=== PATIENT | male | born 1935 | race Caucasian/White ===

== ENCOUNTER → 2021-11-29 | Emergency (ER) | payer OTHER ==
[~2021-11-29] MED LIST: DIPH-TET-PERTUS Vaccine 0.5 ML VIAL (ADACEL) I.M. ONE
[2021-11-29 21:57] VITALS: BP_SYST 191
--- NOTE | 2021-11-30 | NUR ---
Received patient to ER via EMS ambulance w/ c/o generalized weakness. Patient resting quietly. No acute distress noted. Introduced self to patient, abrasion noted to left elbow. positioned for comfort. bed to low position sr up. continue to monitor. Vital signs within normal range.
[2021-11-30 00:27] LABS: BASOPHILS % (AUTO) 0.6 % (0.0-2.0); EOSINOPHILS # (AUTO) 0.1 K/uL (0.0-0.4); EOSINOPHILS % (AUTO) 2.3 % (0.0-4.0); HEMATOCRIT 31.5 % (36-54); HEMOGLOBIN 10.5 g/dL (14.0-18.0); LYMPHOCYTES # (AUTO) 0.6 K/uL (1.0-5.5); LYMPHOCYTES % (AUTO) 13.9 % (20.5-51.5); MEAN CORPUSCULAR HEMOGLOBIN 30 pg (27-31); MEAN CORPUSCULAR HGB CONC 33 % (32-36); MEAN CORPUSCULAR VOLUME 91 fL (79.0-98.0); MONOCYTES # (AUTO) 0.5 K/uL (0.0-1.0); MONOCYTES % (AUTO) 12.2 % (1.7-9.3); PLATELET COUNT (AUTO) 189 K/uL (130-430); RED BLOOD CELL COUNT(AUTO) 3.47 MIL/uL (4.2-6.2); RED CELL DISTRIBUTION WIDTH 14.7 % (9.0-15.0); WHITE BLOOD COUNT (AUTO) 4.2 K/uL (4.8-10.8)
[2021-11-30 00:53] LABS: ANION GAP -4 (5-15); CALCIUM 8.8 mg/dL (8.4-11.0); CHLORIDE 108 mmol/L (98-107); CREATININE 0.99 mg/dL (0.55-1.30); GLUCOSE 98 mg/dL (70-99); POTASSIUM 3.9 mmol/L (3.5-5.1); SODIUM SERUM 138 mmol/L (136-145); UREA NITROGEN, BLOOD 31 mg/dL (8-21)
[2021-11-30 01:07] LABS: ALANINE AMINOTRANSFERASE 28 U/L (12-78); ALBUMIN 3.1 g/dL (3.4-4.8); ASPARTATE AMINOTRANSFERASE 26 U/L (10-37); TOTAL BILIRUBIN 0.5 mg/dL (0.0-1.0)
--- NOTE | 2021-11-30 01:19 | NUR ---
Patient not medicated w/ tetanus 2nd to out of stock. [employer] called and confirmed that tetanus is out of stock.
--- NOTE | 2021-11-30 01:30 | NUR ---
steri strips to left elbow skin tear covered w/ gauze wrapped in kerlix. continue to monitor.
[2021-11-30 02:18] VITALS: BP_SYST 154
== END | disposition home or self-care (01) ==
LOC: SED 21:33
DX: S51.012A Laceration without foreign body of left elbow, initial encounter (principal); I10 Essential (primary) hypertension; F03.90 Unspecified dementia, unspecified severity, without behavioral disturbance, psychotic disturbance, mood disturbance, and anxiety; I48.20 Chronic atrial fibrillation, unspecified; Z79.01 Long term (current) use of anticoagulants; Z88.0 Allergy status to penicillin; Z88.8 Allergy status to other drugs, medicaments and biological substances; W19.XXXA Unspecified fall, initial encounter; Y93.9 Activity, unspecified; Y92.9 Unspecified place or not applicable; Y99.9 Unspecified external cause status
CPT/HCPCS: 36415; 80053; 85025; 99284